=== PATIENT | male | born 1955 | race Caucasian/White ===

== ENCOUNTER 2019-07-12 01:20 | Observation (INO) | payer OTHER ==
[2019-07-12] MEDS ORDERED: Ondansetron ODT 4 MG TAB ONE (01:56)
[2019-07-12] MEDS ORDERED: Dicyclomine 20 MG TAB ONE (01:57)
[2019-07-12 04:40] VITALS: BMI 27.6
[2019-07-12] MEDS ORDERED: Ondansetron ODT 4 MG TAB SL PRN (04:48)
[2019-07-12] MEDS ORDERED: Acetaminophen 325 MG TAB PO PRN ×2 (04:48→08:47)
[2019-07-12] MEDS ORDERED: Ondansetron PF 4 MG/2 ML Vial IVP PRN ×2 (04:48→08:47)
[2019-07-12 05:37] LABS: Troponin I Less than 0.010 ng/mL (< 0.028)
[2019-07-12] MEDS ORDERED: Dextrose 5% in Water 1,000 ML IV PRN (08:40)
[2019-07-12] MEDS ORDERED: Dextrose 50% Abboject 50 ML SYRINGE SLOW IVP PRN (08:40)
[2019-07-12] MEDS ORDERED: Insulin Regular 300 UNITS/3 ML VIAL SC PRN ×2 (08:40)
[2019-07-12] MEDS ORDERED: Nitroglycerin 0.4 MG TAB (25 Tab Bottle) PO PRN (08:40)
[2019-07-12] MEDS ORDERED: Senokot S 8.6-50 MG TAB PO PRN (08:47)
[2019-07-12] MEDS ORDERED: Calcium Carbonate 500 MG ChewTAB PO PRN (08:47)
[2019-07-12] MEDS ORDERED: Bisacodyl 10 MG SUPP PR PRN (08:47)
[2019-07-12] MEDS ORDERED: Ondansetron ODT 4 MG TAB PO PRN (08:47)
[2019-07-12] MEDS ORDERED: Aspirin 325 mg Enteric Coated Tablet PO SCH (09:00)
--- NOTE | 2019-07-12 13:44 | HP ---
PRIMARY CARE PHYSICIAN: [facility]. The patient is currently incarcerated. CHIEF COMPLAINT: Chest discomfort. HISTORY OF PRESENT ILLNESS: The patient is a 63-year-old male with coronary artery disease status post CABG, presented to the emergency room at [facility] with chest discomfort. The chest discomfort started yesterday afternoon while he was resting. It was precordial pressure-like without any radiation. He had nausea along with palpitations and some shortness of breath. No radiation or diaphoresis reported. He denies any syncope or recent immobilization. He denies recent cardiac workup. He is compliant with all of his medications including aspirin. No cough, wheezing, or heartburn reported. PAST MEDICAL HISTORY: 1. Coronary artery disease, status post CABG x4. 2. Diabetes mellitus, type 2. 3. Hypertension. 4. Hyperlipidemia. 5. History of skin cancer with surgical intervention. PAST SURGICAL HISTORY: 1. Left carpal tunnel surgery. 2. Coronary artery bypass grafting. ALLERGIES: THE PATIENT IS ALLERGIC TO PENICILLIN. SOCIAL HISTORY: He is a former smoker, quit smoking three weeks ago. Denies any drug use. FAMILY HISTORY: Negative for premature coronary artery disease. REVIEW OF SYSTEMS: All other review of systems was reviewed and was found negative. CURRENT HOME MEDICATIONS: The patient is able to name his medication, however, does not remember the dosages. He takes aspirin, carvedilol, glipizide, gabapentin, lisinopril, metformin and hydrochlorothiazide. PHYSICAL EXAMINATION: VITAL SIGNS: In the emergency room showed temperature 97.3, respirations of 18, pulse rate of 69, blood pressure of 129/59, O2 saturation of 97% on room air. GENERAL: A 63-year-old male, in no apparent distress. Denies any chest discomfort at this time. HEENT: Head, atraumatic and normocephalic. Sclerae anicteric. Moist mucous membranes. No oral lesion. NECK: Supple. No JVD appreciated. No carotid bruit. LUNGS: Clear to auscultation bilaterally. No wheezing, rales, or rhonchi. HEART: S1 and S2 present. Regular rate and rhythm. Healed midline scar from previous CABG. No heaves or pulsation. ABDOMEN: Soft, nontender. Bowel sounds present. EXTREMITIES: No edema or calf tenderness. NEUROLOGIC: Grossly nonfocal. Moves all 4 extremities. PSYCHIATRY: Alert, awake, and oriented x3. SKIN: Warm and dry. LYMPH NODES: No palpable lymph nodes in the neck. PERIPHERAL VASCULAR: Radial pulses palpable bilaterally. MUSCULOSKELETAL: No joint swelling or tenderness. LABORATORY FINDINGS: CBC showed WBC 11.1, hemoglobin 13.5, hematocrit 39.7, platelet count of 204. Chemistry showed sodium 144, potassium 3.6, chloride 103, bicarbonate 27, BUN 17, creatinine 1.43. His creatinine in the emergency room earlier was 1.6. Troponin of 0.024 initially. Repeat troponin was less than 0.010. IMAGING STUDIES: Chest x-ray by my review was negative for infiltrate or edema. EKG by my review showed sinus rhythm with nonspecific ST-T wave changes in the lateral leads. IMPRESSION: 1. Chest discomfort. The patient has history of coronary artery disease status post coronary artery bypass grafting. He denies recent cardiac workup. We will rule out acute coronary syndrome. 2. Hypertension. 3. Diabetes mellitus, type 2. 4. Chronic kidney disease, stage 3. 5. Chronic anemia. 6. Former smoker. 7. Peripheral neuropathy secondary to diabetes. 8. History of skin cancer. 9. Penicillin allergy. PLAN: The patient will be monitored in the telemetry unit. We will schedule a Cardiolite stress test. We will continue aspirin. We will verify his home medications. We will hold metformin due to slightly elevated creatinine on admission. His baseline creatinine is unknown. We will start him on low-dose carvedilol. Plan of care was discussed with the patient in detail, he stated understanding. Continue statins. Resume gabapentin at low dose. We will await home medication verification. Job ID: [id number]
[2019-07-12] MEDS ORDERED: ADENOSINE 60 MG/20 ML VIAL ONE (13:55)
[2019-07-12] MEDS ORDERED: Gabapentin 100 MG CAP PO SCH (15:00)
[2019-07-12 15:40] VITALS: BP 147/67; TEMP 98.7
--- NOTE | 2019-07-12 15:59 | NM ---
CARDIAC SPECT: CLINICAL HISTORY: 63-year-old female with chest pain, coronary artery disease, CABG, hypertension, diabetes, dyslipidem ia, smoker. TECHNIQUE: A myocardial perfusion scan was performed using the single isotope one day protocol with technetium-9 9m sestamibi. 11 mCi were injected intravenously for the rest exam followed by 28 mCi for the stress exam. Pharmacologic stress with Adenosine was monitored and interpreted by Nai Arguelles NP. FINDINGS: There is a small fixed defect in the apex. No reversible defects are seen. GATED SPECT LVEF: 61%. WALL MOTION EXAM: No significant wall motion abnormalities are seen. IMPRESSION: No evidence of reversible ischemia. POS: OFF
[2019-07-12] MEDS ORDERED: Carvedilol 6.25 MG TAB PO SCH (17:00)
--- NOTE | 2019-07-12 19:49 | DIS ---
DATE OF ADMISSION: 07/12/2019 DATE OF DISCHARGE: 07/12/2019 DISCHARGE DISPOSITION: The patient is an inmate. DISCHARGE MEDICATIONS: Same as admission medication. Sublingual nitroglycerin was added. Please refer to the history and physical dictated earlier for details on the hospitalization. BRIEF HOSPITAL COURSE: The patient was admitted to the telemetry unit with a diagnosis of chest discomfort, rule out acute coronary syndrome. His serial troponins remained negative. He underwent a Cardiolite stress test that was negative for reversible ischemia. He appears stable for discharge. He denies any chest discomfort at this time. FINAL DIAGNOSES: 1. Chest discomfort, acute coronary syndrome ruled out. 2. Hypertension. 3. Diabetes mellitus, type 2. 4. Chronic kidney disease, stage 3. 5. Chronic anemia. 6. Diabetic neuropathy. 7. Former smoker. 8. History of skin cancer. 9. Penicillin allergy. PLAN: Plan of care was discussed with the patient in detail. He stated understanding. Job ID: [id number]
[2019-07-12] MEDS ORDERED: Atorvastatin Calcium 10 MG TAB PO SCH (21:00)
== END 2019-07-12 17:59 ==
LOC: ERS 01:20 → 2SW 04:03
PROVIDERS: ADMIT Hospitalist; ATTEND Hospitalist
DX: R07.89 Other chest pain (principal); I12.9 Hypertensive chronic kidney disease with stage 1 through stage 4 chronic kidney disease, or unspecified chronic kidney disease; E11.22 Type 2 diabetes mellitus with diabetic chronic kidney disease; N18.3 Chronic kidney disease, stage 3 (moderate); D63.1 Anemia in chronic kidney disease; E11.42 Type 2 diabetes mellitus with diabetic polyneuropathy; I25.10 Atherosclerotic heart disease of native coronary artery without angina pectoris; E78.5 Hyperlipidemia, unspecified; Z85.828 Personal history of other malignant neoplasm of skin; Z87.891 Personal history of nicotine dependence; Z79.82 Long term (current) use of aspirin; Z79.84 Long term (current) use of oral hypoglycemic drugs; Z79.899 Other long term (current) drug therapy; Z88.0 Allergy status to penicillin; Z95.1 Presence of aortocoronary bypass graft
CPT/HCPCS: 36415; 36416; 78452; 83880; 84484; 93005; 93017; A9500; G0378; J0153; Q0162